=== PATIENT | female | born 1995 | race African-American/Black ===

== ENCOUNTER 2016-11-16 18:39 | Emergency (ER) | payer MEDICAID, OTHER ==
[~2016-11-16] VITALS: Ht 160 cm; Wt 80.0 kg
[2016-11-16 18:41] VITALS: BP 119/56; PULSE 74; RESP 14; TEMP 98.4; O2SAT 99
== END 2016-11-16 20:50 | disposition left against medical advice (07) ==
LOC: NED 18:39
DX: R11.2 Nausea with vomiting, unspecified (principal); Z53.21 Procedure and treatment not carried out due to patient leaving prior to being seen by health care provider
CPT/HCPCS: 99281

== ENCOUNTER 2017-03-24 21:52 | Emergency (ER) | payer MEDICAID, OTHER ==
[2017-03-24 22:17] VITALS: BP 131/61; PULSE 98
[2017-03-24 22:30] VITALS: RESP 18
--- NOTE | 2017-03-24 22:55 | PD ---
HPI Travel History International Travel<30 Days: No Contact w/Intl Traveler<30Days: No Known Affected Area: No History of Present Illness HPI This patient is a 21-year-old 4 para 10-1 EDC is July 03, 2017 presently at 25 weeks and 4 days she presents the chief complaint of right and left lower quadrant pain also pain in her inner thigh She's had the pain for about 2 weeks care with Carolina Andrew course as been unremarkable up to now she states Carolina Morales is aware of the discomfort her workup was negative No fever no chills no nausea no vomiting no headaches or blurred vision she does have increased frequency and urgency pressure with urination She works at [employer] and 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 8 oz. vaginal delivery Spontaneous AB 2 Past Surgical History Surgical History: No Previous Surgery Family History Family History: Negative Social History Alcohol Use: No Tobacco Use: No Substance Abuse: No Allergies-Medications (Allergen,Severity, Reaction): Coded Allergies: No Known Allergies (Verified , 11/16/16) Review of Systems General / Constitutional: No: Fever, Weight Gain, Weight Loss, Chills, Other Eyes: No: Diploplia, Blurred Vision, Visual changes, Pain, Photophobia, Other HENT: No: Headaches, Vertigo, Dental Difficulties, Lightheadedness, Other Cardiovascular: No: Irregular Rhythm, Chest Pain or Discomfort, Palpitations, Tachycardia, Syncope, Varicosities, Edema, Cyanosis, Other Respiratory: No: Cough, Short of Breath, Wheezing, Other Gastrointestinal: Abdominal Pain (as as per history of present illness) Genitourinary: Urgency, Frequency, Other (pressure) Musculoskeletal: Other (pain in her inner thighs) Physical Exam Vital Signs Date Time Temp Pulse Resp B/P Pulse Ox O2 Delivery O2 Flow Rate FiO2 03/24/17 22:30 18 03/24/17 22:17 98 131/61 Narrative GENERAL: Well-nourished, well-developed patient. Alert oriented 3 and cooperative in no acute distresstent. CARDIOVASCULAR: Regular rate and rhythm without murmurs, gallops, or rubs. RESPIRATORY: Breath sounds equal bilaterally. No accessory muscle use.. ABDOMEN/GI: Abdomen soft, non-tender, bowel sounds present, no rebound, no guarding gravid consistent with 25 weeks soft nontender no palpable contractions no rebound tenderness no epigastric or right upper quadrant tenderness mild tenderness over the left and right round ligament and in the suprapubic area Gravid to [-] weeks size consistent with 25 weeks Fundal Height: [-] GENITOURINARY: Speculum exam is done no fluid no blood scant whitish discharge External Genitalia: intact and normal in appearance BUS glands: [-] Cervix: [-] Posterior firm Dilatation: [-] 0 Effacement: [-] 0 Station: [-] Presentation: [-] Breech on ultrasound Membranes: [intact Uterine Contractions: [-]0 FHT's: Category: [-] Baseline: [-] 140 Reactive: [-] Variability: [-] Decels: [-] EXTREMITIES: No cyanosis or edema. 2+reflexes NEUROLOGICAL: Awake and alert. Motor and sensory grossly within normal limits. Five out of 5 muscle strength in all muscle groups. Normal speech. Data Data Vital Signs Reviewed: Yes Orders Vital Signs (Adult) .ON ADMISSION (03/24/17 22:26) ^ Labor Status (03/24/17 22:26) Urinalysis - C+S If Indicated (03/24/17 22:26) ^ Hydration (03/24/17 22:26) Fibronectin (03/24/17 22:26) Labs Bedside ultrasound is done it's a breech presentation The BPD is 6.31 that equals 25 weeks and 4 days Posterior grade 1 placenta Deepest pocket 5.71 x 2.50 No previa no funneling Cervical length 3.2 to MDM Medical Record Reviewed: No (no records are available) Interpretation(s) 21-year-old at 25 weeks 4 days Not in labor Musculoskeletal pain Round ligament pain Rule out UTI Narrative Course / MDM fibronectin is negative Urinalysis shows the cultures not indicated however there are red cells and bacteria in the urine She has been given this prescription for Keflex 500 mg by mouth 3 times a day for total of 7 days Patient discharged home kick counts Rest By mouth fluid hydration Keep her next appointment with Carolina Morales Plan External monitoring By mouth fluid hydration fibronectin Urinalysis Reevaluation If UTI is present will treat with Keflex 500 mg by mouth 3 times a day for 7 days By mouth fluid hydration Rest Warm towel to the round ligaments kick counts Keep next appointment in the clinic Diagnosis Diagnosis: Primary Impression: with 25 completed weeks gestation Additional Impressions: Musculoskeletal pain Round ligament pain UTI (urinary tract infection) in in second trimester Disposition: 01 DISCHARGE HOME Condition: Stable Patient Instructions: General Instructions, Early Labor Signs (ED), Movement (ED) Departure Forms: Tests/Procedures Josselin Menchaca MD March 24, 2017 22:55
[2017-03-24 23:01] LABS: BACTERIA, URINE RARE /hpf; BLOOD, URINE NEG (NEG); COMMENT (UR) CULT NOT INDICATED; CULTURE IF INDICATED CULT NOT INDICATED; GLUCOSE,URINE NEG (NEG); HYALINE CAST, URINE 1 /lpf (RARE); KETONE, URINE TRACE mg/dL (NEG); MUCUS URINE MANY /lpf (OCC); NITRITE,URINE NEG (NEG); PH, URINE 6.5 (5.0-8.5); SQUAMOUS EPITHELIAL CELL URINE 5 /hpf (0-5); URINE COLOR YELLOW (YELLW/STRAW)
== END 2017-03-25 00:49 | disposition home or self-care (01) ==
LOC: HOBED 21:52
DX: O23.40 Unspecified infection of urinary tract in pregnancy, unspecified trimester (principal); M79.1 Myalgia; Z3A.25 25 weeks gestation of pregnancy
CPT/HCPCS: 76815; 81001; 82731